=== PATIENT | male | born 1970 | race Caucasian/White ===

== ENCOUNTER 2016-08-24 06:19 | Day surgery (SDC) | payer BC ==
[~2016-08-24] VITALS: Ht 180.3 cm; Wt 72.7 kg
[~2016-08-24 06:19] MED LIST: THYR81.25 PO
[2016-08-24] MEDS ORDERED: SODIUM CHLORIDE 0.9% 1,000 ML IV ONE ×2 (06:30→06:45)
[2016-08-24] MEDS ORDERED: CeFAZolin 1 GM/DEXTROSE 50 ML IV ONE (06:45)
[2016-08-24] MEDS ORDERED: LORazepam 2 MG/ML VIAL IVP ONE (06:45)
[2016-08-24] MEDS ORDERED: LORazepam 2 MG/ML VIAL ONE (08:25)
[2016-08-24 09:42] VITALS: BP 116/79
[2016-08-24] MEDS ORDERED: IODIXANOL 320 MG/ML 100 ML VIAL ONE ×2 (09:44→10:06)
[2016-08-24] MEDS ORDERED: LIDOCAINE HCL/PF 1% 30 ML VIAL ONE (09:45)
[2016-08-24] MEDS ORDERED: HEPARIN SODIUM 1000 UNITS/NS 500 ML ONE (09:45)
[2016-08-24] MEDS ORDERED: IODIXANOL 320 MG/ML 100 ML VIAL IARTER ONE ×2 (10:45)
[2016-08-24] MEDS ORDERED: LIDOCAINE HCL/PF 1% 30 ML VIAL INJ ONE (10:45)
[2016-08-24] MEDS ORDERED: IODIXANOL 320 MG/ML 50 ML VIAL ONE (10:48)
[2016-08-24] MEDS ORDERED: HYDROmorphone 2 MG/ML SYRINGE IVP ONE (12:00)
[2016-08-24] MEDS ORDERED: MIDAZOLAM HCL 2 MG/2 ML VIAL IVP ONE (12:00)
[2016-08-24] MEDS ORDERED: KETAMINE HCL 50 MG/ML 10 ML VIAL IVP ONE (12:00)
[2016-08-24 12:53] VITALS: BP 159/95
[2016-08-24] MEDS ORDERED: HYDROmorphone 2 MG/ML SYRINGE IVP PRN (13:00)
[2016-08-24] MEDS ORDERED: SODIUM CHLORIDE 0.9% 1,000 ML IV SCH (13:00)
[2016-08-24] MEDS ORDERED: HYDROmorphone HCL 2 MG TABLET PO ONE (13:00)
[2016-08-24] MEDS ORDERED: MORPHINE SULFATE 2 MG/ML SYRINGE IVP PRN (13:15)
[2016-08-24] MEDS ORDERED: ONDANSETRON HCL 4 MG/2 ML VIAL IVP PRN (13:15)
[2016-08-24] MEDS ORDERED: FentaNYL CITRATE-PF 100 MCG/2 ML VIAL IVP PRN (13:15)
[2016-08-24] MEDS ORDERED: NALOXONE HCL 0.4 MG/ML VIAL IVP PRN (13:15)
[2016-08-24] MEDS ORDERED: HYDROmorphone HCL 2 MG TABLET ONE ×2 (14:04→15:37)
[2016-08-24] MEDS ORDERED: HYDROmorphone HCL 2 MG TABLET PO SCH (16:00)
[2016-08-24] MEDS ORDERED: PROMETHAZINE HCL 25 MG TABLET PO ONE (16:00)
[2016-08-24] MEDS ORDERED: OXYGEN THERAPY IH SCH (20:00)
== END 2016-08-24 16:00 | disposition home or self-care (01) ==
LOC: SDS 06:19
PROVIDERS: ATTEND Radiology Diagnostic Radiology
DX: C78.7 Secondary malignant neoplasm of liver and intrahepatic bile duct (principal); C19 Malignant neoplasm of rectosigmoid junction; D64.9 Anemia, unspecified; Z98.890 Other specified postprocedural states; Z90.49 Acquired absence of other specified parts of digestive tract
CPT/HCPCS: 36245; 36247; 36248; 37243; 47383; 75726; 75774; 76940; C1760; C1769 ×3; C1887 ×3; C1892 ×2; C2618; J0690; J1170; J1644; J2060; J2250; J3490 ×2; J7030; Q9967 ×2; 76937; 76942

== ENCOUNTER 2016-10-04 06:31 | Day surgery (SDC) | payer BC ==
[~2016-10-04] VITALS: Ht 180.3 cm; Wt 71.8 kg
[~2016-10-04 06:31] MED LIST changes: +LORazepam 2 MG/ML VIAL IVP ONE; +SODIUM CHLORIDE 0.9% 1,000 ML IV ONE; +SODIUM CHLORIDE 0.9% 250 ML IV ONE
[2016-10-04] MEDS ORDERED: SODIUM CHLORIDE 0.9% 1,000 ML IV ONE (07:00)
[2016-10-04 07:15] LABS: BASOPHILS % (AUTO) 0.4 % (0.0-2.0); EOSINOPHILS % (AUTO) 3.2 % (1.0-6.0); HEMOGLOBIN 11.7 g/dL (13.5-17.5); LYMPHOCYTES # (AUTO) 1.2 K/uL (1.0-4.8); LYMPHOCYTES % (AUTO) 18.9 % (22.0-44.0); MEAN CORPUSCULAR HEMOGLOBIN 24.4 pg (26.0-34.0); MEAN CORPUSCULAR HGB CONC 31.6 G/dL (31.0-37.0); MEAN CORPUSCULAR VOLUME 77 fL (80-100); MONOCYTES # (AUTO) 0.8 K/uL (0.1-1.0); MONOCYTES % (AUTO) 12.6 % (2.0-9.0); NEUTROPHILS % (AUTO) 64.9 % (40.0-70.0); PLATELET COUNT (AUTO) 322 K/uL (150-450); RED CELL DISTRIBUTION WIDTH 18.4 % (11.5-14.5); WHITE BLOOD COUNT (AUTO) 6.2 K/uL (4.5-11.0)
[2016-10-04 07:39] LABS: INR 1.1 (0.9-1.1); PROTHROMBIN TIME 11.9 SEC (9.4-11.6)
[2016-10-04 07:41] LABS: ANION GAP 9 mmol/L (8-16); CALCIUM, TOTAL 8.9 mg/dL (8.8-10.5); CARBON DIOXIDE 28 mmol/L (22-29); CHLORIDE 104 mmol/L (98-107); CREATININE 0.75 mg/dL (0.60-1.30); GLOMERULAR FILTR. RATE CALC > 60 mL/min (>60); POTASSIUM 4.1 mmol/L (3.5-5.1); SODIUM SERUM 141 mmol/L (136-145); UREA NITROGEN, BLOOD 15 mg/dL (7-18)
[2016-10-04] MEDS ORDERED: LIDOCAINE HCL/PF 1% 30 ML VIAL ONE (07:42)
[2016-10-04] MEDS ORDERED: LORazepam 2 MG/ML VIAL ONE (07:42)
[2016-10-04 07:45] LABS: ALANINE AMINOTRANSFERASE 19 U/L (12-78); ALBUMIN 3.2 g/dL (3.4-5.0); ASPARTATE AMINOTRANSFERASE 16 U/L (15-37); BILIRUBIN,TOTAL 0.2 mg/dL (0.1-1.0); TOTAL PROTEIN, SERUM 7.1 g/dL (6.4-8.2)
[2016-10-04] MEDS ORDERED: CIPROFLOXACIN 400 MG/D5% WATER 200 ML IV ONE (08:00)
[2016-10-04 08:22] VITALS: BP 140/75
[2016-10-04] MEDS ORDERED: LIDOCAINE 1% 30 ML/SOD BICARB 8.4% 4 ML SQ ONE (08:42)
[2016-10-04 09:22] VITALS: BP 162/78
[2016-10-04] MEDS ORDERED: HYDROmorphone 2 MG/ML SYRINGE IVP PRN (09:45)
[2016-10-04] MEDS ORDERED: PROMETHAZINE HCL 25 MG TABLET PO PRN (09:45)
[2016-10-04 10:57] LABS: RBC MORPHOLOGY COMMENT ABNORMAL RBC MORPH
[2016-10-04] MEDS ORDERED: GELATIN SPONGE,ABSORBABLE 100 MM TP ONE (11:15)
[2016-10-04] MEDS ORDERED: 0.9% SODIUM CHLORIDE 10 ML SYRINGE IVP ONE (11:32)
[2016-10-04] MEDS ORDERED: HYDROmorphone 2 MG/ML SYRINGE ONE (11:33)
[2016-10-04] MEDS ORDERED: FentaNYL CITRATE-PF 100 MCG/2 ML VIAL IVP ONE (12:00)
[2016-10-04] MEDS ORDERED: LIDOCAINE HCL/PF 2% 5 ML VIAL INJ ONE (12:00)
[2016-10-04] MEDS ORDERED: DEXAMETHASONE SOD PHOS 4 MG/ML VIAL IVP ONE (12:00)
[2016-10-04] MEDS ORDERED: MIDAZOLAM HCL 2 MG/2 ML VIAL IVP ONE (12:00)
[2016-10-04] MEDS ORDERED: PROPOFOL 1% 20 ML VIAL IVP ONE (12:00)
[2016-10-04] MEDS ORDERED: KETAMINE HCL 50 MG/ML 10 ML VIAL IVP ONE (12:00)
[2016-10-04] MEDS ORDERED: METOCLOPRAMIDE HCL 5 MG/ML 2 ML VIAL IVP ONE (12:00)
[2016-10-04] MEDS ORDERED: KETOROLAC TROMETHAMINE 60 MG/2 ML VIAL IM ONE (12:00)
[2016-10-04] MEDS ORDERED: ONDANSETRON HCL 4 MG/2 ML VIAL IVP ONE (12:00)
== END 2016-10-04 12:10 | disposition home or self-care (01) ==
LOC: SDS 06:31
PROVIDERS: ATTEND Radiology Diagnostic Radiology
DX: C78.7 Secondary malignant neoplasm of liver and intrahepatic bile duct (principal); C18.9 Malignant neoplasm of colon, unspecified; D64.9 Anemia, unspecified; Z90.49 Acquired absence of other specified parts of digestive tract; Z98.890 Other specified postprocedural states
CPT/HCPCS: 36415; 47383; 76940; 80053; 85025; 85610; J0690; J0744; J1100; J1170; J1885; J2060; J2250; J2405; J2704; J2765; J3010; J3490 ×3; J7030; 76700; C2618